=== PATIENT | female | born 1990 | race American Indian/Alaskan Native ===

== ENCOUNTER 2019-10-08 18:17 | Emergency (ER) | payer SELFPAY ==
--- NOTE | 2019-10-08 19:29 | Event Note ---
ED Screening Note Date of service: 10/08/19 Time: 19:23 ED Screening Note: This is a 28 y.o. F. that presents to the ER with elevated blood pressure. Patient states she was at a pre-employment screening and told her blood pressure was elevated. LMP 2 years ago. PMH of PCOS. Denies headache, chest pain, palpitations, or visual changes. This initial assessment/diagnostic orders/clinical plan/treatment(s) is/are subject to change based on patients health status, clinical progression and re- assessment by fellow clinical providers in the ED. Further treatment and workup at subsequent clinical providers discretion. Patient/guardian urged not to elope from the ED as their condition may be serious if not clinically assessed and managed. Initial orders include: Labs
[2019-10-08 20:12] LABS: Alanine Aminotransferase 9 units/L (7-56); Albumin 4.2 g/dL (3.9-5); BUN/Creatinine Ratio 16; Blood Urea Nitrogen 11 mg/dL (7-17); Calcium 9.2 mg/dL (8.4-10.2); Hemolysis Index 33
[2019-10-08] MEDS ORDERED: amLODIPine 5 MG TAB PO ONE (21:06)
[2019-10-08 21:33] VITALS: BP 204/129
[2019-10-08 21:48] LABS: HCG Qualitative,Urine Negative (Negative)
[2019-10-08 21:49] LABS: Amorphous Crystals,Urine 1+; Bilirubin,Urine NEG (Negative); Blood,Urine NEG (Negative); Color,Urine Yellow (Yellow); Protein,Urine <15 mg/dL mg/dL (Negative); Urobilinogen,Urine < 2.0 mg/dL (<2.0)
[2019-10-08 21:50] LABS: RBC,Urine < 1.0 /HPF (0.0-6.0); WBC,Urine < 1.0 /HPF (0.0-6.0)
--- NOTE | 2019-10-08 22:28 | Emergency Department Report ---
ED General Adult HPI - General Chief complaint: Medical Clearance Stated complaint: ELEVATED BLOOD PRESSURE Time Seen by Provider: 10/08/19 19:23 Source: patient Mode of arrival: Ambulatory Limitations: No Limitations - History of Present Illness Initial comments: This is a 28-year-old female nontoxic, well nourished in appearance, no acute signs of distress presents to the ED for hypertension. Patient stated that she went for a checkup for preemployment physical and was told that she has high blood pressure. Patient denies any chest pain, shortness of breath, fever, chills, nausea, vomiting, headache, stiff neck, numbness or tingling. Patient stated that she is asymptomatic. Patient denies taking any medications for hypertension. Patient denies any past medical history or any drug allergies. MD Complaint: hypertension Severity scale (0 -10): 0 Improves with: none Worsens with: none Associated Symptoms: denies other symptoms. denies: confusion, chest pain, cough, diaphoresis, fever/chills, headaches, loss of appetite, malaise, nausea/vomiting, rash, seizure, shortness of breath, syncope, weakness Treatments Prior to Arrival: none - Related Data Previous Rx's Medication Instructions Recorded Last Taken Type amLODIPine 10 mg PO DAILY #30 tab 10/08/19 Unknown Rx Allergies Allergy/AdvReac Type Severity Reaction Status Date / Time No Known Allergies Allergy Unverified 10/08/19 18:21 ED Review of Systems ROS: Stated complaint: ELEVATED BLOOD PRESSURE Other details as noted in HPI Constitutional: denies: chills, fever Eyes: denies: eye pain, eye discharge, vision change ENT: denies: ear pain, throat pain Respiratory: denies: cough, shortness of breath, wheezing Cardiovascular: denies: chest pain, palpitations Endocrine: no symptoms reported Gastrointestinal: denies: abdominal pain, nausea, diarrhea Genitourinary: denies: urgency, dysuria, discharge Musculoskeletal: denies: back pain, joint swelling, arthralgia Skin: denies: rash, lesions Neurological: denies: headache, weakness, paresthesias Psychiatric: denies: anxiety, depression Hematological/Lymphatic: denies: easy bleeding, easy bruising ED Past Medical Hx - Past Medical History Previous Medical History?: No - Surgical History Past Surgical History?: No - Social History Smoking Status: Never Smoker Substance Use Type: None - Medications Home Medications: Home Medications Medication Instructions Recorded Confirmed Last Taken Type amLODIPine 10 mg PO DAILY #30 tab 10/08/19 Unknown Rx ED Physical Exam - General Limitations: No Limitations General appearance: alert, in no apparent distress - Head Head exam: Present: atraumatic, normocephalic - Eye Eye exam: Present: normal appearance - Neck Neck exam: Present: normal inspection, full ROM - Respiratory Respiratory exam: Present: normal lung sounds bilaterally. Absent: respiratory distress, wheezes, rales, rhonchi, stridor, chest wall tenderness, accessory muscle use, decreased breath sounds, prolonged expiratory - Cardiovascular Cardiovascular Exam: Present: regular rate, normal rhythm - Extremities Exam Extremities exam: Present: normal inspection, full ROM - Back Exam Back exam: Present: normal inspection, full ROM - Neurological Exam Neurological exam: Present: alert, oriented X3, normal gait - Psychiatric Psychiatric exam: Present: normal affect, normal mood - Skin Skin exam: Present: warm, dry, intact, normal color. Absent: rash ED Course Vital Signs 10/08/19 10/08/19 19:21 21:32 Temperature 98.3 F Pulse Rate 109 H 93 H Respiratory 18 Rate Blood Pressure 206/139 204/129 O2 Sat by Pulse 100 Oximetry - Reevaluation(s) Reevaluation #1: 10/08/19 22:28 Patient is speaking in full sentences with no signs of distress noted. ED Medical Decision Making - Lab Data Result diagrams: 10/08/19 19:35 - Medical Decision Making This is a 28-year-old female that presents with hypertension. Patient is stable and was examined by me. Patient is started on Norvasc in the ER and will be discharge as well. Patient is currently asymptomatic. EKG normal sinus rhythm w ith no ST abnormalities. Labs are unremarkable. As per ACEP guidelines: In patients with asymptomatic markedly elevated blood pressure, routine ED medical intervention is not required. In ED patients with asymptomatic markedly elevated blood pressure, routine screening for acute target organ injury (eg, serum creatinine, urinalysis, ECG) is not required. Patient was instructed to keep a daily diary of blood pressure and to present his primary care doctor. Patient has also been educated on lifestyle modifications to decreased blood pressure. At time of discharge, the patient does not seem toxic or ill in appearance. No acute signs of distress noted. Patient agrees to discharge treatment plan of care. No further questions noted by the patient. Critical care attestation.: If time is entered above; I have spent that time in minutes in the direct care of this critically ill patient, excluding procedure time. ED Disposition Clinical Impression: HTN (hypertension) Disposition: DC- TO HOME OR SELFCARE Is pt being admited?: No Does the pt Need Aspirin: No Condition: Stable Instructions: Hypertension (ED), Amlodipine (By mouth), Low Sodium Diet (ED) Additional Instructions: Follow-up with a primary care doctor in 3-5 days or if symptoms worsen and kaz nue return to emergency room as soon as possible. Prescriptions: amLODIPine 10 mg PO DAILY #30 tab Referrals: PRIMARY CARE, [Primary Care Provider] - 3-5 Days PJ RODARTE MD [Staff Physician] - 3-5 Days [facility] [place]Outside] - 3-5 Days [facility] [Outside] - 3-5 Days Forms: Work/School Release Form(ED)
[2019-10-09 02:01] LABS: Bacteria,Urine 1+ /HPF (Negative); Mucus,Urine FEW /HPF
== END 2019-10-08 22:45 | disposition home or self-care (01) ==
LOC: ED 18:17
DX: I10 Essential (primary) hypertension (principal); Z79.899 Other long term (current) drug therapy
CPT/HCPCS: 36415; 80053; 81001; 81025; 93005; 93010